=== PATIENT | female | born 1935 | race Caucasian/White ===

== ENCOUNTER 2022-03-24 10:07 | Emergency (ER) | payer MEDICARE, SELFPAY ==
[2022-03-24 10:18] VITALS: PULSE 57; RESP 18; TEMP 37.3; O2SAT 93; BMI 28.0
--- NOTE | 2022-03-24 10:22 | XRR_ITS ---
PROCEDURE INFORMATION: Exam: XR Right Ribs with PA Chest Exam date and time: 03/24/2022 10:39 AM Age: 86 years old Clinical indication: Injury or trauma; Fall; Rib area; Blunt trauma (contusions or hematomas); Prior surgery; Surgery type: Heart TECHNIQUE: Imaging protocol: XR Right ribs with PA chest. Views: 3 views COMPARISON: CR Chest 1 [place] [id number] 04/09/2017 4:08 PM FINDINGS: Lungs: Unremarkable. No consolidation. Pleural spaces: Unremarkable. No pleural effusion. No pneumothorax. Heart/Mediastinum: Unremarkable. No cardiomegaly. Bones/joints: metallic sternotomy wires are in place. Comparison to prior examination sternotomy wires were not present on prior study. The examination is otherwise similar XR/XR ribs RT mn 3V w [id number] IMPRESSION: 1. No acute findings. 2. Metallic sternotomy wires are present
[2022-03-24 10:24] VITALS: BP 113/51; PULSE 65; RESP 18; TEMP 37.3; O2SAT 94
[2022-03-24] MEDS: sodium chloride 0.9% 1,000 ML 999 ML IV (10:31)
[2022-03-24] MEDS: acetaminophen 500 mg Tablet 1000 MG PO (10:32)
--- NOTE | 2022-03-24 10:37 | ED_ITS ---
HPI - Fall General: Chief Complaint: Fall Stated Complaint: WEAKNESS; RIGHT RIB PAIN S/P FALL Time Seen by Provider: 03/24/22 10:09 Source: patient and EMS Mode of arrival: EMS Limitations: no limitations History of Present Illness: 86-year-old female who states that she had some low-grade fevers and slight weakness over the last day states that today she tripped and fell in her house landed on her right side in the floor and injured her right ribs. States she had right rib pain she rates a 6 out of 10 denies any shortness of breath she denies hitting her head denies any neck pain denies any hip pain she been ambulatory since event temp here is 99 2 she said she has had a slight cough. Denies any vomiting or diarrhea. Associated symptoms-after fall: Reports chest pain; Denies abdominal pain, headache(s) or neck pain Review of Systems Const: Reports: fever(s); Denies: chills, body aches or change in appetite Eyes: Denies: blurry vision or eye discomfort ENMT: Denies: throat pain or dental pain Card: Reports: chest pain Resp: Denies: dyspnea GI: Denies: abdominal pain, nausea, vomiting or diarrhea : Denies: dysuria Musc: Denies: neck pain or back pain Skin/Breast: Denies: rash Neuro: Denies: headache(s) Psych: Denies: depression Griffin/Lymph: Denies: easy bruising All/Imm: Denies: urticaria PFSH ED PFSH: Medical History No pertinent past medical history Social History Substance/Drug Use: never Physical Exam Const: COMMON NORMALS: no acute distress, patient oriented x3 and healthy appearing HENMT: COMMON NORMALS: normocephalic and atraumatic HEAD & SCALP: normocephalic and atraumatic Eye: COMMON NORMALS: Equal, round and reactive pupils present and EOMs intact bilaterally PUPIL: Yes Equal, round and reactive pupils present Neck/C-Spine: COMMON NORMALS: full ROM and supple Chest: COMMONS NORMALS: normal inspection of the chest OTHER: right sided chest wall tenderness Resp: COMMON NORMALS: normal respiratory effort, No retractions, No use of accessory muscles and clear to auscultation bilaterally AUSCULTATION: clear to auscultation bilaterally Cardio: COMMON NORMALS: regular rate, regular rhythm and No murmurs present (Cardio) RATE: regular rate RHYTHM: regular rhythm GI: COMMON NORMALS: Normal to inspection, nondistended, normoactive bowel sounds present, Soft to palpation, non-tender and no masses PALPATION: Yes Soft to palpation Extremity: COMMON NORMALS: normal to inspection and full ROM Neuro: COMMON NORMALS: patient oriented x3, moves all extremities and no focal motor deficits Psych: COMMON NORMALS: mental status grossly normal, Normal thought process present and cooperative THOUGHT PROCESS: Normal thought process present Skin: COMMON NORMALS: no rashes or lesions noted and no wounds GENERAL SKIN EXAM: no rashes or lesions noted Course Vital Signs: Vital signs: Vital Signs Temperature 97.9 F 03/24/22 11:40 Pulse Rate 91 03/24/22 11:40 Respiratory Rate 18 03/24/22 11:40 Blood Pressure 126/81 03/24/22 11:40 Pulse Oximetry 92 03/24/22 11:40 MDM - Fall Medical Decision Making Patient presents here with a rib contusion from the fall x-ray shows no fractures she had low-grade fevers she is afebrile here blood work COVID chest x-ray are all normal she feels improved she stable for discharge she is to follow-up PCP and return if worsening she understands agrees to plan. Lab Data : 03/24/22 10:30 03/24/22 10:30 Radiology Impressions Ribs X-Ray 03/24/22 10:22 IMPRESSION: 1. No acute findings. 2. Metallic sternotomy wires are present Laboratory Results WBC 10.4 10^3/uL (4.0-10.0) H 03/24/22 10:30 RBC 3.48 10^6/uL (4.1-5.3) L 03/24/22 10:30 Hgb 10.6 g/dL (11.5-15.3) L 03/24/22 10:30 Hct 33.6 % (37.0-47.0) L 03/24/22 10:30 MCV 96.6 fl (81-99) 03/24/22 10:30 MCH 30.5 pg (28.0-34.0) 03/24/22 10:30 MCHC 31.5 g/dL (30.0-36.0) 03/24/22 10:30 RDW 14.3 % (12.1-15.1) 03/24/22 10:30 Plt Count 121 10^3/cmm (130-400) L 03/24/22 10:30 MPV 11.7 fL (7.4-10.4) H 03/24/22 10:30 Neut % (Auto) 83.6 % 03/24/22 10:30 Lymph % (Auto) 8.4 % 03/24/22 10:30 [place] % (Auto) 6.0 % 03/24/22 10:30 Eos % (Auto) 1.1 % 03/24/22 10:30 Baso % (Auto) 0.4 % 03/24/22 10:30 Neut # (Auto) 8.71 10^3/uL (1.8-7.7) H 03/24/22 10:30 Lymph # (Auto) 0.9 10^3/uL (0.8-4.8) 03/24/22 10:30 [place] # (Auto) 0.6 10^3/uL (0.2-0.9) 03/24/22 10:30 Eos # (Auto) 0.1 10^3/uL (0.0-0.8) 03/24/22 10:30 Baso # (Auto) 0.0 10^3/uL (0.0-0.1) 03/24/22 10:30 Nucleated RBC % (auto) 0 % 03/24/22 10:30 Nucleated RBCs # 0.0 /100WBC 03/24/22 10:30 Sodium 133 mmol/L (136-145) L 03/24/22 10:30 Potassium 4.2 mmol/L (3.5-5.1) 03/24/22 10:30 Chloride 96 mmol/L (98-107) L 03/24/22 10:30 Carbon Dioxide 26 mmol/L (22-29) 03/24/22 10:30 Anion Gap 15.2 (5-19) 03/24/22 10:30 BUN 20 mg/dL (8-23) 03/24/22 10:30 Creatinine 1.2 mg/dL (0.5-0.9) H 03/24/22 10:30 GFR Calculation Not Reportable 03/24/22 10:30 Glucose 111 mg/dL (65-115) 03/24/22 10:30 Calculated Osmolality 279 mOsm/kg (285-295) L 03/24/22 10:30 Calcium 8.0 mg/dL (8.5-10.5) L 03/24/22 10:30 Total Bilirubin 0.5 mg/dL (0.15-1.2) 03/24/22 10:30 AST 15 U/L (0-32) 03/24/22 10:30 ALT 12 U/L (0-33) 03/24/22 10:30 Alkaline Phosphatase 63 IU/L (35-105) 03/24/22 10:30 Total Protein 6.2 g/dL (6.6-8.7) L 03/24/22 10:30 Albumin 3.5 g/dL (3.5-5.2) 03/24/22 10:30 Globulin 2.7 g/dL (1.3-4.6) 03/24/22 10:30 Lipase 25 U/L (13-60) 03/24/22 10:30 Urine Color Yellow (Yellow) 03/24/22 11:15 Urine Appearance Clear (CLEAR) 03/24/22 11:15 Urine pH 7 (5-7) 03/24/22 11:15 Ur Specific [place] 1.005 (1.005-1.030) 03/24/22 11:15 Urine Protein Neg (Negative) 03/24/22 11:15 Urine Glucose (UA) Norm (Normal) 03/24/22 11:15 Urine Ketones Negative (Negative) 03/24/22 11:15 Urine Blood 2+ (Negative) H 03/24/22 11:15 Urine Nitrate Negative (Negative) 03/24/22 11:15 Urine Bilirubin Neg (Negative) 03/24/22 11:15 Urine Urobilinogen Norm mg/dL (Negative) 03/24/22 11:15 Ur Leukocyte Esterase Negative (Negative) 03/24/22 11:15 Urine RBC 5-10 /hpf (0-2) H 03/24/22 11:15 Urine WBC 5-10 /hpf (0-5) H 03/24/22 11:15 Ur Squamous Epith Cells 0-4 /hpf (0-5) H 03/24/22 11:15 Ur Transition Epith Cell 0-4 /hpf 03/24/22 11:15 Amorphous Sediment Not Reportable 03/24/22 11:15 Urine Bacteria 1+ /hpf (NONE) H 03/24/22 11:15 SARS-CoV-2 Ag (Rapid) Negative (Negative) 03/24/22 10:30 Discharge Plan Discharge Patient Disposition: Home Clinical Impression: Fall Chest wall contusion Qualifiers: Encounter type: initial encounter Laterality: right Qualified Code(s): S20.211A - Contusion of right front wall of thorax, initial encounter Prescriptions: New Naprosyn 500 mg tablet 500 mg PO BID PRN (Reason: pain) Qty: 20 0RF Discharge Orders: Discharge ED (Routine); Ordered 03/24/22 Ordered By: Alivia Carpenter Referrals: Manfred Melendez [Primary Care Provider] - Discharge Diet: Advance as tolerated Discharge Activity: Resume usual activity Patient Instructions: Chest Wall Pain (ED) Coding Level of Care Code ED Commissioning Agent for Chg Fwd Exam Comprehensive
[2022-03-24 10:51] LABS: Basophils % 0.4 %; Eosinophils # 0.1 10^3/uL (0.0-0.8); Eosinophils % 1.1 %; Hematocrit 33.6 % (37.0-47.0); Hemoglobin 10.6 g/dL (11.5-15.3); Lymphocytes # 0.9 10^3/uL (0.8-4.8); Lymphocytes % 8.4 %; Mean Corpuscular HGB Conc 31.5 g/dL (30.0-36.0); Mean Corpuscular Hemoglobin 30.5 pg (28.0-34.0); Mean Corpuscular Volume 96.6 fl (81-99); Mean Platelet Volume 11.7 fL (7.4-10.4); Monocytes # 0.6 10^3/uL (0.2-0.9); Neutrophils # 8.71 10^3/uL (1.8-7.7); Neutrophils % 83.6 %; Nucleated Red Blood Cells % 0 %; Platelet Count 121 10^3/cmm (130-400); Red Blood Count 3.48 10^6/uL (4.1-5.3); Red Cell Distribution Width 14.3 % (12.1-15.1); White Blood Count 10.4 10^3/uL (4.0-10.0)
[2022-03-24 11:13] VITALS: BP 127/58; PULSE 88; RESP 18; TEMP 36.8; O2SAT 91
[2022-03-24 11:17] LABS: Alanine Aminotransferase 12 U/L (0-33); Albumin Level 3.5 g/dL (3.5-5.2); Alkaline Phosphatase 63 IU/L (35-105); Anion Gap 15.2 (5-19); Aspartate Amino Transferase 15 U/L (0-32); Blood Urea Nitrogen 20 mg/dL (8-23); Carbon Dioxide 26 mmol/L (22-29); Chloride 96 mmol/L (98-107); Creatinine Clr Calc Pharmacy 32.5233; Globulin 2.7 g/dL (1.3-4.6); Glucose 111 mg/dL (65-115); Lipase 25 U/L (13-60); Osmolality Calculated 279 mOsm/kg (285-295); Potassium 4.2 mmol/L (3.5-5.1); Sodium 133 mmol/L (136-145); Total Bilirubin 0.5 mg/dL (0.15-1.2); Total Protein 6.2 g/dL (6.6-8.7)
[2022-03-24 11:35] LABS: SARS Covid-2 Antigen Negative (Negative)
[2022-03-24 11:40] VITALS: BP 126/81; PULSE 91; RESP 18; TEMP 36.6; O2SAT 92
[2022-03-24 11:57] LABS: Specific Gravity, Urine 1.005 (1.005-1.030); Urine Appearance Clear (CLEAR); Urine Color Yellow (Yellow); pH Urine 7 (5-7)
[2022-03-24 11:58] LABS: Add Urine Culture? No; Add Urine Microscopic? YES; Bacteria Urine 1+ /hpf; Bilirubin Urine Neg (Negative); Blood Urine 2+ (Negative); Glucose Urine UA Norm (Normal); Ketones Urine Negative (Negative); Leukocyte Esterase Urine Negative (Negative); Nitrate Urine Negative (Negative); Protein Urine Neg (Negative); Squamous Epithelial Cell Urine 0-4 /hpf (0-5); Transitional Epi Cells Urine 0-4 /hpf; Urobilinogen Urine Norm (Negative)
== END 2022-03-24 11:55 | disposition home or self-care (01) ==
PROVIDERS: Emergency Provider Emergency Medicine; PCP Physician Assistant Medical
DX: S20.211A Contusion of right front wall of thorax, initial encounter (principal); W01.0XXA Fall on same level from slipping, tripping and stumbling without subsequent striking against object, initial encounter
CPT/HCPCS: 71045; 71101; 80053; 81001; 83690; 85025; 87426; 99283; J7030

== ENCOUNTER → 2022-06-04 14:59 | Outpatient (BNVA) | payer MEDICARE, SELFPAY | PROVIDERS: PCP Physician Assistant Medical; Referring Provider Registered Nurse; Visit Provider Orthopaedic Surgery | DX: M19.011 Primary osteoarthritis, right shoulder (principal) | CPT/HCPCS: 20610; 99204 ==

== ENCOUNTER → 2022-08-07 09:55 | Outpatient (BNVA) | payer MEDICARE, SELFPAY | PROVIDERS: PCP Physician Assistant Medical; Visit Provider Orthopaedic Surgery | DX: M19.011 Primary osteoarthritis, right shoulder (principal) | CPT/HCPCS: 99213 ==

== ENCOUNTER 2022-08-14 10:38 | Outpatient (CLI) | payer MEDICARE, SELFPAY ==
--- NOTE | 2022-08-14 10:43 | MM_ITS ---
WS: [id number] BILATERAL SCREENING DIGITAL TOMOSYNTHESIS MAMMOGRAM WITH CAD HISTORY: SCREENING COMPARISON: 04/12/2021 and 04/04/2020 Bilateral CC and MLO views with tomosynthesis and synthetic mammography submitted. Computer aided det ection analyzed. Breast composition: There are scattered areas of fibroglandular density. No suspicious masses, microc alcifications or architectural distortion. MM/[place] [id number] IMPRESSION: BI-RADS: 1-Negative FOLLOW UP: 1 Year Follow-up
== END 2022-08-14 10:39 | disposition home or self-care (01) ==
LOC: RAD 10:38
PROVIDERS: PCP Physician Assistant Medical; Visit Provider Physician Assistant Medical
DX: Z12.31 Encounter for screening mammogram for malignant neoplasm of breast (principal)
CPT/HCPCS: 77063; 77067

== ENCOUNTER → 2024-01-21 14:31 | Outpatient (BNVA) | payer MEDICARE, SELFPAY | PROVIDERS: PCP Physician Assistant Medical; Visit Provider Dermatology | DX: L57.0 Actinic keratosis (principal); L57.8 Other skin changes due to chronic exposure to nonionizing radiation; L82.1 Other seborrheic keratosis; L81.4 Other melanin hyperpigmentation; Z85.828 Personal history of other malignant neoplasm of skin | CPT/HCPCS: 17000; 99203 ==

== ENCOUNTER → 2024-08-31 10:44 | Outpatient (BNVA) | payer MEDICARE, SELFPAY | PROVIDERS: PCP Physician Assistant Medical; Visit Provider Podiatrist Foot & Ankle Surgery | DX: M76.829 Posterior tibial tendinitis, unspecified leg (principal); L84 Corns and callosities; M21.071 Valgus deformity, not elsewhere classified, right ankle; M21.072 Valgus deformity, not elsewhere classified, left ankle | CPT/HCPCS: 99203 ==

== ENCOUNTER 2024-11-30 12:07 | Outpatient (CLI) | payer MEDICARE, SELFPAY | END 2024-11-30 12:08 | disposition home or self-care (01) | LOC: SPT 12:08 | PROVIDERS: PCP Physician Assistant Medical; Visit Provider Podiatrist Foot & Ankle Surgery | DX: Z46.89 Encounter for fitting and adjustment of other specified devices (principal); M76.829 Posterior tibial tendinitis, unspecified leg | CPT/HCPCS: L3030 ==

== ENCOUNTER 2025-03-03 06:30 | Outpatient (RCR) | payer MEDICARE, SELFPAY | END 2025-04-02 23:59 | disposition home or self-care (01) | LOC: WPT 06:30 | PROVIDERS: Visit Provider Registered Nurse | DX: M51.372 Other intervertebral disc degeneration, lumbosacral region with discogenic back pain and lower extremity pain (principal) | CPT/HCPCS: 97162 ==

== ENCOUNTER 2025-04-03 05:00 | Outpatient (RCR) | payer MEDICARE, SELFPAY | END 2025-05-02 23:59 | disposition home or self-care (01) | LOC: WPT 05:00 | PROVIDERS: Visit Provider Registered Nurse | DX: M51.372 Other intervertebral disc degeneration, lumbosacral region with discogenic back pain and lower extremity pain (principal) | CPT/HCPCS: 97110; 97112; 97530 ==

== ENCOUNTER 2025-05-03 06:30 | Outpatient (RCR) | payer MEDICARE, SELFPAY | END 2025-06-02 23:59 | disposition home or self-care (01) | LOC: WPT 06:30 | PROVIDERS: Visit Provider Registered Nurse | DX: M51.372 Other intervertebral disc degeneration, lumbosacral region with discogenic back pain and lower extremity pain (principal) | CPT/HCPCS: 97110; 97112; 97530 ==